=== PATIENT | male | born 1995 | race Caucasian/White ===

== ENCOUNTER 2018-01-19 21:56 | Emergency (ER) | payer OTHER ==
[~2018-01-19] VITALS: Ht 182.9 cm; Wt 109.2 kg
[2018-01-19 21:59] VITALS: BP 131/68; PULSE 66; RESP 16; TEMP 99.4; O2SAT 97
--- NOTE | 2018-01-19 22:36 | PD ---
HPI Chief Complaint: Eye Problems/Injury Time Seen by Provider: 22:27 Travel History International Travel<30 days: No Contact w/Intl Traveler<30days: No Traveled to known affect area: No History of Present Illness HPI The patient is a 22-year-old male that complains complains of right eye burning , particularly in the upper eyelid when he accidentally was exposed at work to a open and girl cell cleaner at approximately 8:40 PM today. The patient immediately irrigated the eye at work. He was told by poison control to get evaluated in the emergency department. He has minimal pain, 0/10. He was not wearing glasses when this accident occurred, the cell cleaner splattered into his right eye. PFSH Past Medical History Tetanus Vaccination: > 5 Years Social History Alcohol Use: Yes Tobacco Use: No Substance Use: No Allergies-Medications (Allergen,Severity, Reaction): Coded Allergies: No Known Allergies (Unverified , 01/19/18) Reported Meds & Prescriptions Reported Meds & Active Scripts Active Tobrex Opth Oint (Tobramycin Sulfate) 0.3 % Oint 1 Applic RIGHT EYE TID Review of Systems Except as stated in HPI: all other systems reviewed are Neg Physical Exam Narrative GENERAL: Well-nourished, well-developed patient in slight apparent distress with his right eye discomfort. His vital signs are normal.. SKIN: Focused skin assessment warm/dry. There is a first-degree chemical burn 4 x 1 cm on the upper eyelid and above the upper eyelid of the right eye. HEAD: Normocephalic. EYES: No scleral icterus. The right eye shows minimal injection without drainage. Fluorescein staining reveals no corneal uptake. The patient states he did get some slight relief after the proparacaine was applied. No foreign body is seen. NECK: Supple, trachea midline. No JVD or lymphadenopathy. CARDIOVASCULAR: Regular rate and rhythm without murmurs, gallops, or rubs. RESPIRATORY: Breath sounds equal bilaterally. No accessory muscle use. GASTROINTESTINAL: Abdomen soft, non-tender, nondistended. MUSCULOSKELETAL: No cyanosis, or edema. BACK: Nontender without obvious deformity. No CVA tenderness. Data Data Last Documented VS Vital Signs Date Time Temp Pulse Resp B/P (MAP) Pulse Ox O2 Delivery O2 Flow Rate FiO2 01/19/18 21:59 99.4 66 16 131/68 (89) 97 Orders Orders Tobramycin 0.3% Opth Oint (Tobrex 0.3% O (01/19/18 22:45) [facility] Medical Decision Making Medical Screen Exam Complete: Yes Emergency Medical Condition: Yes Medical Record Reviewed: Yes Differential Diagnosis Chemical burn on skin above right eye, corneal chemical burn, conjunctival chemical burn, foreign body right eye Narrative Course The patient has a chemical burn on the skin above the right eye. He has minimal discomfort and a minimal apparent chemical burn on the conjunctiva of the right eye. No corneal uptake was noted On fluorescein staining. Diagnosis Primary Impression: Chemical burn of right eyelid region Additional Impression: Chemical conjunctivitis of right eye Additional Instructions: This should heal after this weekend. If it is not considerably better by Tuesday he should see an oven loader. If worse tomorrow you should see an oven loader. The ointment is put in 4 times daily in the right eye only. Med/Other Pt SpecificInfo: Prescription(s) given Scripts Tobramycin Opth Oint (Tobrex Opth Oint) 0.3 % Oint 1 APPLIC RIGHT EYE TID for Infection, #1 TUBE 0 Refills Prov: Sebastian Gasca MD 01/19/18 Disposition: 01 DISCHARGE HOME Condition: Stable Sebastian Gasca MD January 19, 2018 22:36
[2018-01-19] MEDS ORDERED: TOBR.3%O RIGHT EYE (22:42)
[2018-01-19] MEDS ORDERED: TOBRAMYCIN SULFATE 0.3% OPTH OINT 3.5 GM TUBE RIGHT EYE ONE (22:45)
== END 2018-01-19 23:00 | disposition home or self-care (01) ==
LOC: PHED 21:56
DX: T65.891A Toxic effect of other specified substances, accidental (unintentional), initial encounter (principal); T26.51XA Corrosion of right eyelid and periocular area, initial encounter; Y99.0 Civilian activity done for income or pay; H10.211 Acute toxic conjunctivitis, right eye
CPT/HCPCS: 99283